=== PATIENT | female | born 1935 | race African-American/Black ===

== ENCOUNTER 2016-06-14 19:58 | Emergency (ER) | payer BC ==
[~2016-06-14] VITALS: Ht 167.6 cm; Wt 113.4 kg
[2016-06-14 20:34] VITALS: BP 161/62
[2016-06-14] MEDS ORDERED: Azithromycin 500 MG in NS 250 ML IV ONE (20:45)
[2016-06-14] MEDS ORDERED: Azithromycin Inj IV ONE (20:58)
[2016-06-14] MEDS ORDERED: Cefepime 1gm vial ONE (20:59)
[2016-06-14] MEDS ORDERED: NS 275ml ONE (21:01)
[2016-06-14] MEDS ORDERED: NS 55ml IV ONE (21:01)
[2016-06-14] MEDS ORDERED: Ipratropium 0.02% Inh Soln 2.5ml UD HHN ONE (21:30)
[2016-06-14] MEDS ORDERED: Albuterol ud Inhalation HHN ONE (21:30)
[2016-06-14 21:40] LABS: BASOPHILS % (AUTO) 2.5 % (0.0-2.0); EOSINOPHILS % (AUTO) 4.4 % (0.0-3.0); LYMPHOCYTES % (AUTO) 34.5 % (20.0-45.0); MEAN CORPUSCULAR HEMOGLOBIN 27.1 PG (27.0-31.0); MEAN CORPUSCULAR HGB CONC 31.6 G/DL (32.0-36.0); MEAN CORPUSCULAR VOLUME 86 FL (80-99); MONOCYTES % (AUTO) 9.5 % (1.0-10.0); NEUTROPHILS % (AUTO) 49.2 % (45.0-75.0); PLATELET COUNT 201 K/UL (150-450); RED CELL DISTRIBUTION WIDTH 13.8 % (11.6-14.8); WHITE BLOOD COUNT 4.5 K/UL (4.8-10.8)
[2016-06-14 21:57] LABS: ALANINE AMINOTRANSFERASE 16 U/L (3-33); ALBUMIN/GLOBULIN RATIO 0.9 (1.0-2.7); ANION GAP 15 (5-15); ASPARTATE AMINO TRANSFERASE 22 U/L (5-40); CALCIUM 9.1 mg/dL (8.6-10.2); CARBON DIOXIDE 24 mEQ/L (20-30); CHLORIDE 97 mEQ/L (98-107); CREATININE 1.2 mg/dL (0.5-0.9); HEMOLYSIS 315; POTASSIUM 5.6 mEQ/L (3.4-4.9); SODIUM 136 mEQ/L (135-145); TOTAL PROTEIN 7.6 g/dL (6.6-8.7)
--- NOTE | 2016-06-14 22:26 | Emergency Room Report ---
History of Present Illness General Chief Complaint: Upper Respiratory Illness Source: Patient, Medical Record Present Illness HPI This patient states she has had cough and congestion for the past week and a half. She has had sputum production. She has a nebulizer her home that she has been using. She states she continues to have cough and sputum production. She denies fever. She does have chills. She denies nausea or vomiting. She denies abdominal pain. She denies chest pain. She has no other complaints. Allergies: Coded Allergies: ASPIRIN (Verified Allergy, Unknown, 06/14/16) CODEINE (Verified Allergy, Unknown, 06/14/16) GUAIFENESIN (Verified Allergy, Unknown, 06/14/16) LACTOSE (Verified Allergy, Unknown, 06/14/16) MEPERIDINE (Verified Allergy, Unknown, 06/14/16) Patient History Past Medical History: see triage record, HTN Social History: Denies: alcohol use, drug use, smoking Reviewed Nursing Documentation: PMH: Agreed, PSxH: Agreed Nursing Documentation-PMH Past Medical History: No History, Except For Hx Hypertension: Yes Review of Systems All Other Systems: negative except mentioned in HPI Physical Exam Vital Signs Date Time Temp Pulse Resp B/P Pulse Ox O2 Delivery O2 Flow Rate FiO2 06/14/16 20:10 99.5 67 16 140/85 99 Room Air 06/14/16 21:25 21 Sp02 EP Interpretation: reviewed, normal General Appearance: no apparent distress, alert, GCS 15, non-toxic Head: normocephalic, atraumatic Eyes: bilateral eye PERRL, bilateral eye normal inspection ENT: hearing grossly normal, normal pharynx, no angioedema, normal voice Neck: full range of motion, supple/symm/no masses Respiratory: chest non-tender, speaking full sentences, wheezing, expiration Cardiovascular #1: regular rate, rhythm, no edema Gastrointestinal: normal bowel sounds, non tender, soft, non-distended, no guarding, no rebound Rectal: deferred Musculoskeletal: back normal, gait/station normal, normal range of motion, non- tender Neurologic: alert, oriented x3, responsive, motor strength/tone normal, sensory intact, speech normal Psychiatric: judgement/insight normal, memory normal, mood/affect normal, no suicidal/homicidal ideation Skin: normal color, no rash, warm/dry, well hydrated Medical Decision Making Diagnostic Impression: Primary Impression: Upper respiratory infection Additional Impression: Asthma exacerbation ER Course This patient has a clinical presentation consistent with asthma exacerbation. Patient has a history of asthma and has wheezing on physical exam. The patient was given albuterol and Atrovent nebulizer treatments. The patient was also given prednisone orally. The patient had significant improvement in subjective shortness of breath. The patient's lung exam improved significantly. I will also treat the patient with a course of antibiotics as this has been shown to improve the course of an asthma exacerbation. Also, patient has had a cough with thick sputum, so will go ahead and cover with antibiotics. The patient was given close return precautions and followup instructions. Labs Test 06/14/16 21:00 White Blood Count 4.5 K/UL (4.8-10.8) Red Blood Count 5.50 M/UL (4.20-5.40) Hemoglobin 14.9 G/DL (12.0-16.0) Hematocrit 47.3 % (37.0-47.0) Mean Corpuscular Volume 86 FL (80-99) Mean Corpuscular Hemoglobin 27.1 PG (27.0-31.0) Mean Corpuscular Hemoglobin Concent 31.6 G/DL (32.0-36.0) Red Cell Distribution Width 13.8 % (11.6-14.8) Platelet Count 201 K/UL (150-450) Mean Platelet Volume 8.0 FL (6.5-10.1) Neutrophils (%) (Auto) 49.2 % (45.0-75.0) Lymphocytes (%) (Auto) 34.5 % (20.0-45.0) Monocytes (%) (Auto) 9.5 % (1.0-10.0) Eosinophils (%) (Auto) 4.4 % (0.0-3.0) Basophils (%) (Auto) 2.5 % (0.0-2.0) Sodium Level 136 mEQ/L (135-145) Potassium Level 5.6 mEQ/L (3.4-4.9) Chloride Level 97 mEQ/L (98-107) Carbon Dioxide Level 24 mEQ/L (20-30) Anion Gap 15 (5-15) Blood Urea Nitrogen 25 mg/dL (7-23) Creatinine 1.2 mg/dL (0.5-0.9) Estimat Glomerular Filtration Rate mL/min (>60) Glucose Level 100 mg/dL (74-106) Lactic Acid Level 1.30 mmol/L (0.66-2.22) Calcium Level 9.1 mg/dL (8.6-10.2) Total Bilirubin < 0.2 mg/dL (0.0-1.2) Aspartate Amino Transf (AST/SGOT) 22 U/L (5-40) Alanine Aminotransferase (ALT/SGPT) 16 U/L (3-33) Alkaline Phosphatase 68 U/L (35-104) Total Protein 7.6 g/dL (6.6-8.7) Albumin 3.7 g/dL (3.5-5.2) Globulin 3.9 g/dL Albumin/Globulin Ratio 0.9 (1.0-2.7) EKG Diagnostic Results Rate: normal Rhythm: NSR ST Segments: no acute changes Rhythm Strip Diag. Results EP Interpretation: yes Rate: 60's Rhythm: NSR, no PVC's, no ectopy Chest X-Ray Diagnostic Results EP Interpretation: Yes Findings: no consolidation, no effusion, no pneumothorax, no acute cardiopulmonary disease Number of Views: 1 Last Vital Signs Date Time Temp Pulse Resp B/P Pulse Ox O2 Delivery O2 Flow Rate FiO2 06/14/16 21:50 65 18 99 Room Air 21 06/14/16 20:34 99.2 161/62 Disposition: HOME, SELF-CARE Condition: Stable Scripts Prednisone* (PREDNISONE*) 20 Mg Tablet 40 MG ORAL DAILY, #10 TAB Prov: SEYMOUR PASCUAL D.O. 06/14/16 Azithromycin* (ZITHROMAX*) 250 Mg Tablet 250 MG ORAL DAILY for 4 Days, TAB 0 Refills Prov: SEYMOUR PASCUAL D.O. 06/14/16 SEYMOUR PASCUAL D.O. Jun 14, 2016 22:26
[2016-06-14] MEDS ORDERED: PREDNISONE20 MG ORAL (22:28)
[2016-06-14] MEDS ORDERED: AZITHROMYCIN250 MG ORAL (22:28)
[2016-06-14] MEDS ORDERED: PredniSONE 20mg tab ORAL ONE (22:30)
[2016-06-14 23:30] VITALS: BP 159/59
[2016-06-15 01:04] VITALS: BP 150/60
--- NOTE | 2016-06-15 17:41 | Cardiology Report ---
APPROVED REPORT EKG Measurement Heart [id number] Normal sinus rhythm Nonspecific T wave abnormality Abnormal ECG
--- NOTE | 2016-06-22 14:59 | Diagnostic Imaging Report ---
Indication: COUGH Technique: Single portable AP view of the chest. Findings: Comparison: None. Aortic arch mildly elongated. Left hemidiaphragm mildly elevated. Linear density left midlung. Right lung clear. The bones and extra pulmonary soft tissues, cardiomediastinal silhouette, pulmonary vasculature, and pleural surfaces are otherwise unremarkable. IMPRESSION: Elevation of left hemidiaphragm, nonspecific, acuity indeterminate Subsegmental atelectasis versus scarring left midlung Probable chronic hypertensive change of the thoracic aorta Otherwise negative.
== END 2016-06-15 01:04 | disposition home or self-care (01) ==
LOC: EMR 21:00
DX: J06.9 Acute upper respiratory infection, unspecified (principal); J45.901 Unspecified asthma with (acute) exacerbation; I10 Essential (primary) hypertension; Z88.6 Allergy status to analgesic agent; Z88.8 Allergy status to other drugs, medicaments and biological substances
CPT/HCPCS: 36415; 71010; 80053; 83605; 84132; 85025; 87040; 93005; 94640; 94664; 96374; 96375; 99284; J0456; J0692; J7050

== ENCOUNTER 2016-06-17 19:27 | Inpatient (IN) | payer BC ==
[~2016-06-17] VITALS: Ht 162.6 cm; Wt 99.3 kg
[~2016-06-17 19:27] MED LIST: AZITHROMYCIN250 MG ORAL; PREDNISONE20 MG ORAL
[2016-06-17] MEDS ORDERED: Albuterol ud Inhalation HHN ONE (20:15)
[2016-06-17] MEDS ORDERED: Ipratropium 0.02% Inh Soln 2.5ml UD HHN ONE (20:15)
[2016-06-17 20:35] VITALS: BP 152/60
[2016-06-17 21:28] LABS: MEAN CORPUSCULAR HEMOGLOBIN 26.9 PG (27.0-31.0); MEAN CORPUSCULAR HGB CONC 31.4 G/DL (32.0-36.0); MEAN CORPUSCULAR VOLUME 86 FL (80-99); MEAN PLATELET VOLUME 7.7 FL (6.5-10.1); PLATELET COUNT 192 K/UL (150-450); RED BLOOD COUNT 5.38 M/UL (4.20-5.40); RED CELL DISTRIBUTION WIDTH 13.7 % (11.6-14.8); WHITE BLOOD COUNT 4.6 K/UL (4.8-10.8)
[2016-06-17 21:39] LABS: APPEARANCE,URINE CLEAR; KETONES,URINE NEGATIVE (NEGATIVE); LEUKOCYTE ESTERASE ,URINE 1+ (NEGATIVE); NITRITE,URINE NEGATIVE (NEGATIVE); PH,URINE 6 (4.5-8.0); PROTEIN,URINE NEGATIVE (NEGATIVE); UROBILINOGEN,URINE NORMAL MG/DL (0.0-1.0)
[2016-06-17 21:44] LABS: ALANINE AMINOTRANSFERASE 12 U/L (3-33); ANION GAP 17 (5-15); ASPARTATE AMINO TRANSFERASE 13 U/L (5-40); CALCIUM 8.9 mg/dL (8.6-10.2); CARBON DIOXIDE 24 mEQ/L (20-30); CHLORIDE 98 mEQ/L (98-107); CREATININE 1.2 mg/dL (0.5-0.9); HEMOLYSIS 82; POTASSIUM 4.1 mEQ/L (3.4-4.9); SODIUM 139 mEQ/L (135-145); TOTAL PROTEIN 6.8 g/dL (6.6-8.7); TROPONIN I < 0.30 ng/mL (<=0.30)
[2016-06-17 21:52] LABS: AMORPHOUS SEDIMENT,UR FEW /LPF; BACTERIA,URINE MODERATE /HPF; RBC,URINE 0-2 /HPF (0 - 2); SQUAMOUS EPITHELIAL CELL,UR FEW /LPF (NONE/OCC)
[2016-06-17 22:02] LABS: EOSINOPHILS % (MANUAL) 5 % (0-3); LYMPHOCYTES % (MANUAL) 74 % (20-45); NEUTROPHILS % (MANUAL) 15 % (45-75); PLATELET MORPHOLOGY NORMAL; TOTAL CELLS COUNTED 100
[2016-06-17 22:03] LABS: BAND NEUTROPHILS % (MANUAL) 0 % (0-8); BASOPHILS % (MANUAL) 0 % (0-2); PLATELET ESTIMATE ADEQUATE
[2016-06-17 22:07] LABS: CKMB 1.7 ng/mL (< 3.8)
--- NOTE | 2016-06-17 22:24 | Emergency Room Report ---
History of Present Illness General Chief Complaint: Headache Source: Patient Present Illness HPI 80-year-old female presents to ED complaining of cough and shortness of breath and leg swelling x3 days. No aggravating or relieving factors. Patient denies any chest pain. Notes cough and wheezing. Denies any fevers or chills. Notes history of leg swelling-takes Lasix. Denies any pain in the legs. Denies any sick contacts or recent travel. Denies any other associated symptoms Allergies: Coded Allergies: ASPIRIN (Verified Allergy, Unknown, 06/14/16) CODEINE (Verified Allergy, Unknown, 06/14/16) GUAIFENESIN (Verified Allergy, Unknown, 06/14/16) LACTOSE (Verified Allergy, Unknown, 06/14/16) MEPERIDINE (Verified Allergy, Unknown, 06/14/16) Patient History Past Medical History: HTN Past Surgical History: none Pertinent Family History: none Social History: Denies: alcohol use, drug use, smoking Now: No Immunizations: UTD Reviewed Nursing Documentation: PMH: Agreed, PSxH: Agreed Nursing Documentation-PMH Hx Hypertension: Yes Review of Systems All Other Systems: negative except mentioned in HPI Physical Exam Vital Signs Date Time Temp Pulse Resp B/P Pulse Ox O2 Delivery O2 Flow Rate FiO2 06/17/16 19:34 97.3 74 24 160/87 99 Room Air Sp02 EP Interpretation: reviewed, normal General Appearance: no apparent distress, alert, GCS 15, non-toxic Head: normocephalic Eyes: bilateral eye PERRL, bilateral eye normal inspection ENT: normal ENT inspection Neck: normal inspection Respiratory: chest non-tender, normal breath sounds, crackles, speaking full sentences, wheezing Cardiovascular #1: regular rate, rhythm, no edema Gastrointestinal: normal bowel sounds, non tender, soft, non-distended, no guarding, no rebound Rectal: deferred Genitourinary: no CVA tenderness Musculoskeletal: gait/station normal, swelling - 1+ pitting edema b/l LE Neurologic: alert, oriented x3, responsive, motor strength/tone normal, sensory intact, speech normal Psychiatric: normal inspection Skin: normal inspection Lymphatic: normal inspection Medical Decision Making Diagnostic Impression: Primary Impression: SOB (shortness of breath) Additional Impression: Asthma exacerbation in COPD ER Course Hospital Course 80-year-old F presenting to ED with SOB. h/o asthma Differential diagnoses include: Pneumonia, CHF exacerbation, pneumothorax, fluid overload Clinical course Patient placed on stretcher. On cardiac rehabilitation specialist with stable vitals. After initial history and physical, I ordered nebulizer treatments. I ordered labs, IV fluids, EKG, chest x-ray, blood cultures, UA. Labs - no leukocytosis noted, hemoglobin/hematocrit stable, electrolytes okay, lactate okay, troponins negative CXR - no infiltrates Her taker at bedside and informed me that patient was here 2 days ago for the same presentation. Was treated with breathing treatments and subsequently discharged. abx given. Given the patient's return to ED without resolution of symptoms and her age and risk factors we will admit this time per insurance hospitalist is Dr Correa. Dr Caldera is covering and will admit the patient I feel this is a highly complex case requiring extensive working including EKG/ Rhythm strip, Xray/CT/US, Blood/urine lab work, repeat exams while in ED, and administration of strong opiates/narcotics for pain control, admission to hospital or close patient follow up. Diagnosis - SOB, asthma exacerbation in COPD Patient admitted to telemetry in serious condition Labs Test 06/17/16 21:08 06/17/16 21:30 White Blood Count 4.6 K/UL (4.8-10.8) Red Blood Count 5.38 M/UL (4.20-5.40) Hemoglobin 14.5 G/DL (12.0-16.0) Hematocrit 46.1 % (37.0-47.0) Mean Corpuscular Volume 86 FL (80-99) Mean Corpuscular Hemoglobin 26.9 PG (27.0-31.0) Mean Corpuscular Hemoglobin Concent 31.4 G/DL (32.0-36.0) Red Cell Distribution Width 13.7 % (11.6-14.8) Platelet Count 192 K/UL (150-450) Mean Platelet Volume 7.7 FL (6.5-10.1) Neutrophils (%) (Auto) % (45.0-75.0) Lymphocytes (%) (Auto) % (20.0-45.0) Monocytes (%) (Auto) % (1.0-10.0) Eosinophils (%) (Auto) % (0.0-3.0) Basophils (%) (Auto) % (0.0-2.0) Differential Total Cells Counted 100 Neutrophils % (Manual) 15 % (45-75) Lymphocytes % (Manual) 74 % (20-45) Monocytes % (Manual) 6 % (1-10) Eosinophils % (Manual) 5 % (0-3) Basophils % (Manual) 0 % (0-2) Band Neutrophils 0 % (0-8) Platelet Estimate Adequate Platelet Morphology Normal Red Blood Cell Morphology Normal Sodium Level 139 mEQ/L (135-145) Potassium Level 4.1 mEQ/L (3.4-4.9) Chloride Level 98 mEQ/L (98-107) Carbon Dioxide Level 24 mEQ/L (20-30) Anion Gap 17 (5-15) Blood Urea Nitrogen 22 mg/dL (7-23) Creatinine 1.2 mg/dL (0.5-0.9) Estimat Glomerular Filtration Rate mL/min (>60) Glucose Level 118 mg/dL (74-106) Lactic Acid Level 1.50 mmol/L (0.66-2.22) Calcium Level 8.9 mg/dL (8.6-10.2) Total Bilirubin < 0.2 mg/dL (0.0-1.2) Aspartate Amino Transf (AST/SGOT) 13 U/L (5-40) Alanine Aminotransferase (ALT/SGPT) 12 U/L (3-33) Alkaline Phosphatase 71 U/L (35-104) Total Creatine Kinase 86 U/L (26-140) Creatine Kinase MB 1.7 ng/mL (< 3.8) Creatine Kinase MB Relative Index 1.9 Troponin I < 0.30 ng/mL (<=0.30) Pro-B-Type Natriuretic Peptide 123 pg/mL (0-450) Total Protein 6.8 g/dL (6.6-8.7) Albumin 3.4 g/dL (3.5-5.2) Globulin 3.4 g/dL Albumin/Globulin Ratio 1.0 (1.0-2.7) Urine Color Pale yellow Urine Appearance Clear Urine pH 6 (4.5-8.0) Urine Specific [place] 1.010 (1.005-1.035) Urine Protein Negative (NEGATIVE) Urine Glucose (UA) Negative (NEGATIVE) Urine Ketones Negative (NEGATIVE) Urine Occult Blood 1+ (NEGATIVE) Urine Nitrite Negative (NEGATIVE) Urine Bilirubin Negative (NEGATIVE) Urine Urobilinogen Normal MG/DL (0.0-1.0) Urine Leukocyte Esterase 1+ (NEGATIVE) Urine RBC 0-2 /HPF (0 - 2) Urine WBC 5-10 /HPF (0 - 2) Urine Squamous Epithelial Cells Few /LPF (NONE/OCC) Urine Amorphous Sediment Few /LPF (NONE) Urine Bacteria Moderate /HPF (NONE) EKG Diagnostic Results Rate: normal Rhythm: NSR ST Segments: no acute changes ASA given to the pt in ED: No Rhythm Strip Diag. Results EP Interpretation: yes Rhythm: NSR, no PVC's, no ectopy Chest X-Ray Diagnostic Results EP Interpretation: Yes Findings: no consolidation, no effusion, no pneumothorax, no acute cardiopulmonary disease Number of Views: 1 Last Vital Signs Date Time Temp Pulse Resp B/P Pulse Ox O2 Delivery O2 Flow Rate FiO2 06/17/16 20:59 62 18 100 Room Air 06/17/16 20:35 98.0 152/60 Status: improved Disposition: ADMITTED INPATIENT Condition: Serious Referrals: [facility],REFERRING (PCP) SHELLEY WATTS M.D. Jun 17, 2016 22:24
[2016-06-17] MEDS ORDERED: Nitroglycerin Subl 0.4mg tab (Bottle Of 25) SL PRN (22:45)
[2016-06-17] MEDS ORDERED: Milk of Magnesia 30ml Ud ORAL PRN (22:45)
[2016-06-17] MEDS: DuoNeb 0.5-3(2.5)mg/3ml neb HHN SCH (23:00)
[2016-06-17 23:09] VITALS: BP 151/66
[2016-06-17 23:35] VITALS: BP 156/65
[2016-06-18] MEDS ORDERED: Solu-MEDROL 125mg Inj IVP SCH
[2016-06-18] MEDS ORDERED: NADOLOL20 MG ORAL (00:03)
[2016-06-18] MEDS ORDERED: OMEPRAZOLE20 M2 ORAL (00:03)
[2016-06-18] MEDS ORDERED: TYLENOL EXTRA500 MG ORAL (00:03)
[2016-06-18] MEDS ORDERED: POTASSIUM CHLO10 ME3 ORAL (00:03)
[2016-06-18] MEDS ORDERED: MIRALAX17 G2 ORAL (00:03)
[2016-06-18] MEDS ORDERED: [UNRECOGNIZED DRUG - OTHER] PO (00:03)
[2016-06-18] MEDS ORDERED: FLUCONAZOLE100 MG ORAL (00:03)
[2016-06-18] MEDS ORDERED: BENZONATATE100 MG ORAL (00:03)
[2016-06-18] MEDS ORDERED: LASIX20 M1 ORAL (00:03)
[2016-06-18] MEDS ORDERED: MAG-OXIDE400 M1 PO (00:03)
[2016-06-18] MEDS ORDERED: ACETAMINOPHEN325 M3 PO (00:03)
[2016-06-18] MEDS ORDERED: LIDODERM700 M1 TOPIC (00:03)
[2016-06-18] MEDS ORDERED: LEVOTHYROXINE50 MCG ORAL (00:03)
[2016-06-18] MEDS ORDERED: HYDROCODON-ACE1 EA15 ORAL (00:03)
[2016-06-18] MEDS ORDERED: SENNA8.6 M2 PO (00:03)
[2016-06-18] MEDS ORDERED: DOCUSATE SODIU100 MG ORAL (00:03)
[2016-06-18] MEDS ORDERED: MULTILEX1 EACH PO (00:03)
[2016-06-18 00:30] VITALS: BP 136/74
[2016-06-18] MEDS ORDERED: cefTRIAXone 1 GM in D5W 55 ML IVPB SCH ×3 (02:00)
[2016-06-18] MEDS: DuoNeb 0.5-3(2.5)mg/3ml neb HHN SCH ×4 (02:42→14:55)
[2016-06-18 04:00] VITALS: BP 138/77
[2016-06-18 08:00] VITALS: BP 137/50
[2016-06-18 08:52] LABS: OTHERS PATHOLOGIST COMMENT
[2016-06-18] MEDS ORDERED: Azithromycin 250mg tab ORAL SCH (09:00)
[2016-06-18] MEDS ORDERED: Docusate 100mg cap ORAL SCH (09:00)
[2016-06-18] MEDS ORDERED: Heparin 5000 units/ml inj SUBQ SCH (09:00)
--- NOTE | 2016-06-18 11:11 | Diagnostic Imaging Report ---
Indication: Dyspnea Comparison: 06/14/16 A single view chest radiograph was obtained. Findings: No definite infiltrate or pulmonary vascular congestion identified. The heart is enlarged. The aorta is mildly enlarged consistent with atherosclerotic vascular disease. The bones are osteopenic. Impression: No acute disease
[2016-06-18 12:00] VITALS: BP 137/64
[2016-06-18 16:00] VITALS: BP 128/68
[2016-06-18] MEDS ORDERED: NS 275ml ONE (16:14)
[2016-06-18] MEDS ORDERED: Tubing IV Secondary IV ONE (16:14)
[2016-06-18] MEDS ORDERED: D5W 55ML IV ONE (16:25)
--- NOTE | 2016-06-18 22:18 | History and Physical Report ---
DATE OF ADMISSION: 06/17/2016 CHIEF COMPLAINT AND REASON FOR HOSPITALIZATION: The patient is admitted with headache, cough, and weakness. HISTORY OF PRESENT ILLNESS: The patient is an 80-year-old lady, who was in the emergency room 2 days ago with cough and weakness and returned home and came back because of a severe headache and continued cough. She was felt to have exacerbation of asthma and chronic obstructive pulmonary disease and was admitted last night by the emergency room physician. She was given steroids, but when I ask her she states she is allergic to prednisone. factors is that she apparently had valley fever in 2013 and was told to avoid steroids. The patient has had some cough and wheezing, has a nebulizer at home. She has a history of obesity and either rheumatoid arthritis or osteoarthritis and multiple orthopedic problems. She has chronic back pain and walks with a walker and uses a wheelchair. PAST MEDICAL HISTORY: She was treated many years ago for TB. PAST SURGICAL HISTORY: Right total knee replacement, left hip surgery, cyst in the breast, benign, tonsillectomy, and cataracts. ALLERGIES: Possibly to prednisone as above and intolerance to Bactrim and streptomycin. MEDICATIONS: Prior to admission medications are listed on the computer and include Tylenol, azithromycin, benzonatate, DSS, fluconazole, Lasix, [place], levothyroxine, lidocaine patch, magnesium oxide, multivitamin with minerals, nadolol, omeprazole, polyethylene glycol, potassium, prednisone, and senna. HABITS: She is a nondrinker and nonsmoker. No use of illicit drugs. SOCIAL HISTORY: She is . No children. Worked as a social media manager for many years. SYSTEM REVIEW: HEENT: She has diminished hearing. Vision is good. ENDOCRINE: No known diabetes or thyroid disease. PULMONARY: See above. CARDIAC: There is questionable congestive heart failure. She has hypertension and hyperlipidemia. PHYSICAL EXAMINATION: GENERAL: The patient is alert, obese lady, lying in bed, in no acute distress. VITAL SIGNS: Temperature 97, pulse 63, respirations 18, blood pressure 137/64, and pulse oximetry 98% on room air. HEENT: Sclerae are nonicteric. Ocular motions intact in all directions. Oral mucosa moist. NECK: No adenopathy or thyroid enlargement. LUNGS: Few faint rhonchi. No distress. HEART: Rhythm is regular. I hear no murmur. ABDOMEN: Obese and soft. No organomegaly or masses. EXTREMITIES: Show trace edema. Degenerative changes in the knees. NEUROLOGIC: She is alert and oriented. Cranial nerves are intact. PERTINENT DATABASE: Chest x-ray shows no acute disease. Her initial laboratories are unremarkable. IMPRESSION: 1. Asthma and chronic obstructive pulmonary disease with acute exacerbation. 2. Tension headache. 3. Osteoarthritis. 4. Obesity. 5. Past history of valley fever. PLAN: The patient was given steroids and which shall be discontinued in view of her history of possible allergy. She feels better and wants to go home. I discussed with her that when stopping the steroid, she could have an exacerbation of her breathing problem and that she should use her home nebulizer every 4 hours. Her headaches have resolved since arrival. Kendall Moreno M.D. DR: MARIA R JOB#: [id number] CC:
--- NOTE | 2016-06-19 04:48 | Discharge Summary ---
DATE OF ADMISSION: 06/17/2016 DATE OF DISCHARGE: 06/18/2016 PERTINENT HISTORY: The patient presents with cough, wheezing, and headache. PERTINENT PHYSICAL FINDINGS: See my dictated History and Physical. HOSPITAL COURSE: The patient was given nebulizer and steroids. Steroids were discontinued when she told me she was allergic to prednisone, which may not be a true allergy. She felt better and at the time of discharge, she had no respiratory distress. Her pulse oximetry was normal on room air. The headaches had resolved and she was discharged home in stable condition. FINAL DIAGNOSES: 1. Asthma with exacerbation. 2. Tension headache. 3. Obesity. 4. Osteoarthritis. DISCHARGE DISPOSITION: Back to the board and care on her prior to admission medicines and no steroids at the patient's request. Kendall Moreno M.D. DR: NAOMI JOB#: [id number] CC:
--- NOTE | 2016-06-20 19:51 | Cardiology Report ---
APPROVED REPORT EKG Measurement Heart [id number] Normal sinus rhythm Normal ECG
== END 2016-06-18 16:15 | disposition home or self-care (01) | DRG 191 ==
LOC: ENRESERVDT → ENRESERVTM → EMR 19:55 → 2E 20:55 → UNDOADMIN 20:55 → EDBEDREQ 22:22 → 2E 23:13
DX: J44.1 Chronic obstructive pulmonary disease with (acute) exacerbation (principal); J45.901 Unspecified asthma with (acute) exacerbation; Z96.651 Presence of right artificial knee joint; M54.9 Dorsalgia, unspecified; G89.29 Other chronic pain; E66.9 Obesity, unspecified; G44.209 Tension-type headache, unspecified, not intractable; Z87.898 Personal history of other specified conditions; M19.90 Unspecified osteoarthritis, unspecified site; Z68.37 Body mass index [BMI] 37.0-37.9, adult
CPT/HCPCS: 36415; 71010; 80053; 81003; 82550; 82553; 83605; 83880; 84484; 85007; 85025; 87040; 87081; 87086; 93005; 94640; 94664; J7620